=== PATIENT | female | born 1970 ===

== ENCOUNTER 2016-09-20 02:38 | Emergency (ER) | payer OTHER ==
[2016-09-20 03:09] VITALS: RESP 16; TEMP 97.6
[2016-09-20] MEDS ORDERED: Sodium Chloride 0.9% 1,000 ML IV STA (03:18)
--- NOTE | 2016-09-20 03:20 | ED PDOC ---
Arrival/HPI - General Chief Complaint: GI Problem Time Seen by Provider: 09/20/16 03:00 Historian: Patient - History of Present Illness Narrative History of Present Illness (Text): 09/20/16 03:13 46 year old female, whose past medical history includes anemia and hypothyroidism, presents to the emergency department with intermittent diarrhea after she went to the beach 1 week ago. Patient also reports associated nausea and dizziness. She denies symptoms of headache, chest pain, shortness of breath , fever, vomiting, or any other complaint. Time/Duration: 1 week Symptom Onset: Sudden Symptom Course: Unchanged Activities at Onset: Rest, Light Context: Home Past Medical History - Provider Review Nursing Documentation Reviewed: Yes - Infectious Disease Hx of Infectious Diseases: None - Reproductive Menopause: No - Pulmonary Hx Asthma: Yes - Endocrine/Metabolic Hx Hypothyroidism: Yes - Hematological/Oncological Hx Anemia: Yes - Musculoskeletal/Rheumatological Hx Back Pain: Yes - Psychiatric Hx Substance Use: No - Anesthesia Hx Anesthesia: Yes Hx Anesthesia Reactions: No Hx Malignant Hyperthermia: No Family/Social History - Physician Review Nursing Documentation Reviewed: Yes Family/Social History: No Known Family HX Smoking Status: Never Smoked Hx Alcohol Use: No Hx Substance Use: No Allergies/Home Meds Allergies/Adverse Reactions: Allergies shellfish derived Allergy (Verified 09/20/16 03:13) ANAPHYLAXIS Home Medications: Home Meds Medication Instructions Recorded Confirmed Iron/FA#1/Vit C/B12/Zn/Dss/Suc 1 tab PO DAILY 09/20/16 09/20/16 [Feriva 21-7 Tablet] Levothyroxine [Synthroid] 100 mcg PO DAILY 09/20/16 09/20/16 Review of Systems - Physician Review All systems were reviewed & negative as marked: Yes - Review of Systems Constitutional: absent: Fevers Respiratory: absent: SOB Cardiovascular: absent: Chest Pain Gastrointestinal: Diarrhea, Nausea. absent: Vomiting Neurological: Dizziness. absent: Headache Physical Exam Vital Signs Reviewed: Yes Vital Signs Temp Pulse Resp BP Pulse Ox 09/20/16 05:47 73 16 126/94 H 98 09/20/16 03:08 97.6 F 71 16 133/89 100 Temperature: Afebrile Blood Pressure: Normal Pulse: Regular Respiratory Rate: Normal Appearance: Positive for: Well-Appearing Pain Distress: None Mental Status: Positive for: Alert and Oriented X 3 - Systems Exam Head: Present: Atraumatic, Normocephalic Pupils: Present: PERRL Extroacular Muscles: Present: EOMI Conjunctiva: Present: Normal Mouth: Present: Moist Mucous Membranes Neck: Present: Normal Range of Motion Respiratory/Chest: Present: Clear to Auscultation, Good Air Exchange. No: Respiratory Distress, Accessory Muscle Use Cardiovascular: Present: Regular Rate and Rhythm, Normal S1, S2. No: Murmurs Abdomen: No: Tenderness, Distention, Peritoneal Signs Back: Present: Normal Inspection Upper Extremity: Present: Normal Inspection. No: Cyanosis, Edema Lower Extremity: Present: Normal Inspection. No: Edema Neurological: Present: GCS=15, CN II-XII Intact, Speech Normal Skin: Present: Warm, Dry, Normal Color. No: Rashes Psychiatric: Present: Alert, Oriented x 3, Normal Insight, Normal Concentration Medical Decision Making ED Course and Treatment: 09/20/16 03:32 Impression: A 46 year female with diarrhea for a week with associated nausea and dizziness. Plan: -- Labs -- Pepcid, IV Fluids, Zofran -- Reassess and disposition Progress Notes: 09/20/16 05:40 Reevaluation: On reevaluation the patient feels better and is in no acute distress. I have discussed the results and plan with the patient, who expresses understanding. Patient given the opportunity to ask question, all questions were answered and there is agreement with the plan to discharge the patient home with prescription for Zophran. Patient is stable for discharge. Patient was instructed to follow up with physician/clinic in 1-2 days or return if symptoms persist/worsen or new concerning symptoms arise. - Lab Interpretations Lab Results: 09/20/16 03:30 09/20/16 03:30 Lab Results 09/20/16 03:30: WBC 3.5 L, RBC 3.95, Hgb 12.7, Hct 36.6, MCV 92.7, MCH 32.2, MCHC 34.7, RDW 12.4, Plt Count 285, MPV 10.7 09/20/16 03:30: Sodium 140, Potassium 4.2, Chloride 105, Carbon Dioxide 27, Anion Gap 12, BUN 19, Creatinine 0.9, Est GFR ( Amer) > 60, Est GFR (Non- Af Amer) > 60, Random Glucose 95, Calcium 8.7, Total Bilirubin 0.4, AST 19, ALT 23, Alkaline Phosphatase 66, Total Protein 7.6, Albumin 4.0, Globulin 3.6, Albumin/Globulin Ratio 1.1, Lipase 54 I have reviewed the lab results: Yes - Medication Orders Current Medication Orders: Discontinued Medications Famotidine (Pepcid) 20 mg IVP STAT STA Stop: 09/20/16 03:19 Last Admin: 09/20/16 03:40 Dose: 20 mg Sodium Chloride (Sodium Chloride 0.9%) 1,000 mls @ 999 mls/hr IV .Q1H1M STA Stop: 09/20/16 04:18 Last Admin: 09/20/16 03:40 Dose: 999 mls/hr Ondansetron HCl (Zofran Inj) 4 mg IVP ONCE ONE Stop: 09/20/16 03:19 Last Admin: 09/20/16 03:40 Dose: 4 mg - Scribe Statement The provider has reviewed the documentation as recorded by the Glenn Fowler training under Reina Dykes Provider Scribe Attestation: All medical record entries made by the Scribe were at my direction and personally dictated by me. I have reviewed the chart and agree that the record accurately reflects my personal performance of the history, physical exam, medical decision making, and the department course for this patient. I have also personally directed, reviewed, and agree with the discharge instructions and disposition. Disposition/Present on Arrival - Present on Arrival Any Indicators Present on Arrival: No History of DVT/PE: No History of Uncontrolled Diabetes: No Urinary Catheter: No History of Decub. Ulcer: No History Surgical Site Infection Following: None - Disposition Have Diagnosis and Disposition been Completed?: Yes Diagnosis: Gastroenteritis Disposition: HOME/ ROUTINE Disposition Time: 05:39 Patient Plan: Discharge Condition: STABLE Discharge Instructions (ExitCare): Gastroenteritis (ED) Additional Instructions: Drink plenty of liquids/medication as prescribed/follow up with your doctor this week Prescriptions: Ondansetron [Zofran Odt] 4 mg PO Q6 PRN #12 odt PRN Reason: Nausea/Vomiting Forms: [employer] ([place])
[2016-09-20 03:53] LABS: ALB/GLOB RATIO 1.1 (1.1-1.8); ALT/SGPT 23 U/L (7-56); AST/SGOT 19 U/L (15-39); BLOOD UREA NITROGEN 19 mg/dL (7-21); CALCIUM 8.7 mg/dL (8.4-10.5); GFR AFRICAN-AMERICAN > 60; GFR NON-AFRICAN AMERICAN > 60; LIPASE 54 U/L (23-300)
[2016-09-20 03:54] LABS: HEMOGLOBIN 12.7 gm/dL (12.0-16.0); MEAN CELL VOLUME 92.7 fL (80.0-105.0); MEAN CORPUSCULAR HEMOGLOBIN 32.2 pg (25.0-35.0); MEAN CORPUSCULAR HGB CONC 34.7 g/dl (31.0-37.0); MEAN PLATELET VOLUME 10.7 fl (7.0-11.0); RBC 3.95 10^6/uL (3.5-6.1); RED CELL DISTRIBUTION WIDTH 12.4 % (11.5-14.5); WHITE BLOOD COUNT 3.5 10^3/ul (4.5-11.0)
[2016-09-20 05:48] VITALS: BP 126/94; PULSE 73; O2SAT 98
== END 2016-09-20 05:55 | disposition home or self-care (01) ==
LOC: ED 02:38
DX: K52.9 Noninfective gastroenteritis and colitis, unspecified (principal)
CPT/HCPCS: 80053; 83690; 85027; 96361; 96374; 96375; 99284; J2405; J7040